=== PATIENT | male | born 1990 | race Caucasian/White ===

== ENCOUNTER 2019-05-09 18:07 | Emergency (ER) | payer BC ==
[~2019-05-09] VITALS: Ht 182.9 cm; Wt 65.3 kg
--- OUTSIDE RECORDS SUMMARY | ~2019-05-09 | XMS | Encounter Summary ---
Demographics + + + | Address | [address] | | | [place] [address] | + + + | Home Phone | | + + + | Preferred Language | Unknown | + + + | Marital Status | Single | + + + | Gnosticism Affiliation | Unknown | + + + | Race | Unknown | + + + | Ethnic Group | Unknown | + + + Author + + + | Author | [facility] | | | and [facility] | + + + | Organization | [facility] | | | and [facility] | + + + | Address | Unknown | + + + | Phone | Unavailable | + + + Support + + +---------+ + | Name | Relationship | Address | Phone | + + +---------+ + | Sherin Colón | ECON | Unknown | | + + +---------+ + Care Team Providers + +------+ + | Care Outpatient Therapist Name | Role | Phone | + +------+ + | No, Physician | PCP | Unavailable | + +------+ + Reason for Visit + + + | Reason | Comments | + + + | Work Related Injury | New Claim, lower back injury, RM 8 | + + + Encounter Details +--------+---------+ + + + | Date | Type | Department | Care Team | Description | +--------+---------+ + + + | 01/31/ | Office | [facility] | Gallito Parry, | Lumbar strain, | | 2019 | Visit | CARE [address] | MD [address] | initial encounter | | | | [place] | [place] | (Primary Dx) | | | | [phone] | [address] | | | | | [phone] | | | +--------+---------+ + + + Social History + +-------+ +--------+------+ | Tobacco Use | Types | Packs/Day | Years | Date | | | | | Used | | + +-------+ +--------+------+ | Never Smoker | | | | | + +-------+ +--------+------+ + +---+---+---+ | Smokeless Tobacco: | | | | | Never Used | | | | + +---+---+---+ + + + | Sex Assigned at | Date Recorded | | | | + + + | Not on file | | + + + + + + + | Job Start Date | Occupation | Industry | + + + + | Not on file | Not on file | Not on file | + + + + + + + + | Travel History | Travel Start | Travel End | + + + + + + | No recent travel history available. | + + documented as of this encounter Last Filed Vital Signs + + + + + | Vital Sign | Reading | Time Taken | Comments | + + + + + | Blood Pressure | 112/72 | 01/31/2019 1:41 PM | | | | | PDT | | + + + + + | Pulse | 73 | 01/31/2019 1:41 PM | | | | | PDT | | + + + + + | Temperature | 37.1 C (98.8 F) | 01/31/2019 1:41 PM | | | | | PDT | | + + + + + | Respiratory Rate | 18 | 01/31/2019 1:41 PM | | | | | PDT | | + + + + + | Oxygen Saturation | 97% | 01/31/2019 1:41 PM | | | | | PDT | | + + + + + | Inhaled Oxygen | - | - | | | Concentration | | | | + + + + + | Weight | 71 kg (156 lb 8.4 | 01/31/2019 1:41 PM | | | | oz) | PDT | | + + + + + | Height | 182.9 cm (6') | 01/31/2019 1:41 PM | | | | | PDT | | + + + + + | Body Mass Index | 21.23 | 01/31/2019 1:41 PM | | | | | PDT | | + + + + + documented in this encounter Patient Instructions Patient Instructions Gallito Parry MD - 01/31/2019 1:30 PM PDT You may take tylenol 500 mg 2 tablets with ibuprofen 200 mg 2 tablets four times daily as n eeded for the pain. Understanding Lumbosacral Strain Lumbosacral strain is a medical term for an injury that causes low back pain. The lumbosacr al area (low back) is between the bottom of the ribcage and the top of the buttocks. A strai n is tearing of muscles and tendons. These tears can be very small but still cause pain. How a lumbosacral strain happens Muscles and tendons connected to the spine can be strained in a number of ways: Sitting or standing in the same position for long periods of time. This can harm the low back over time. Poor posture can make low back pain more likely. Moving the muscles and tendons past their usual range of motion. This can cause a sudden injury. This can happen when you twist, bend over, or lift something heavy. Not using corre ct technique for sports or tasks like lifting can make back injury more likely. Accidents or falls Lumbosacral strain can be caused by other problems, but these are less common. Symptoms of lumbosacral strain Symptoms may include: Pain in the back, often on one side Pain that gets worse with movement and gets better with rest Inability to move as freely as usual Swelling, slight redness, and skin warmth in the painful area Treatment for lumbosacral strain Low back pain often goes away by itself within several weeks. But it often comes back. Mikki tment focuses on reducing pain and avoiding further injury. Bed rest is usually not recommen ded for low back pain. Treatments may include: Avoiding or changing the action that caused the problem. This helps prevent injuring the tissues again. Prescription or [id number]-ivvefje pain medicines. These help reduce inflammation, swellin g, and pain. Cold or heat packs. These help reduce pain and swelling. Stretching and other exercises. These improve flexibility and strength. Physical therapy. This usually includes exercises and other treatments. Injections of medicine. This may relieve symptoms. If these treatments do not relieve symptoms, your healthcare provider may order imaging haley ts to learn more about the problem. Sometimes you may need surgery. Possible complications of lumbosacral strain If the cause of the pain is not addressed, symptoms may return or get worse. Follow your [facility] instructions on lifestyle changes and treating your back. When to call your healthcare provider Call your healthcare provider right away if you have any of these: Fever of 100.4F (38C) or higher, or as directed Numbness, tingling, or weakness Problems with bowel or bladder control, or problems having sex Pain that does not go away, or gets worse New symptoms Date Last Reviewed: 07/09/201519993409-4005 [employer]. [address] [place] [address]. All [facility] ts reserved. This information is not intended as a substitute for professional medical care. Always follow your healthcare professional's instructions. documented in this encounter Progress Notes Gallito Parry MD - 01/31/2019 1:30 PM PDTFormatting of this note might be different fr om the original. Subjective: Patient ID: Clem Colón is a 29 y.o. male.who presents today for Work Related Inju ry (New Claim, lower back injury, RM 8) . HPI The patient is being seen at urgent care for work-related low back injury. He was at work this morning when he bent over to lift a tote which had a weight of approximately 75 to 100 pounds. He had acute onset of pain in the low back towards the right side. He denies any p ain numbness or weakness into the lower extremities. He has pain with twisting or bending. He has had no difficulty with passing urine. He has not taken anything for the pain at thi s time. He had a similar incident 1 year ago at which she was pulling cable from ground and was diagnosed with a lumbar strain. He has had no history of disc herniations and has had no history of back surgeries. There is no problem list on file for this patient. No past surgical history on file. No current outpatient medications on file. No current facility-administered medications for this visit. He reports that he has never smoked. He has never used smokeless tobacco. Allergies No active allergies Intolerance No active intolerances/contraindications ROS Objective: BP 112/72 | Pulse 73 | Temp 37.1 C (98.8 F) (Temporal) | Resp 18 | Ht 1.829 m (6') | Wt 71 kg (156 lb 8.4 oz) | SpO2 97% | BMI 21.23 kg/m Physical Exam Patient is alert and appropriate. He is quite stiff in his movements. He is able to raise from the side chair and get to the exam table without difficulty. The back is straight wit h no abnormal curvatures. There is no tenderness over the central spine with palpation or p ercussion. He has moderate tenderness on palpation of the right sacroiliac area. Straight leg raise is positive at approximately 80 degrees on the right side. Motor strength is equa l and symmetrical lower extremities proximal as well as distal without deficits. Sensation is intact to soft touch in general dermatomal areas of the lower extremities without abnorma l sensation. Deep tendon reflexes are 2+ patella and 2+ at both Achilles. No x-rays are performed at this time. No results found for this or any previous visit (from the past 24 hour(s)). Assessment/Plan: Clem was seen today for work related injury. Diagnoses and all orders for this visit: Lumbar strain, initial encounter Patient has an acute lumbar strain and will be treated conservatively at this time. He is given work restriction of no bending stooping crawling or climbing ladders for the next 2 we eks. He is to take Tylenol and ibuprofen as needed for pain and can use a heating pad or ic e whichever helps back to relax and relieve his pain better. If he is having increasing lori n, pain numbness or tingling radiating to the lower extremities, or any difficulty with pass ing stool or bladder he needs to be rechecked. Otherwise he will be rechecked by occupation al medicine in 2 weeks prior to returning to full duty. Activity prescription form medical restrictions form and report of accident forms are compl eted. Return in about 2 weeks (around 02/14/2019), or if symptoms worsen or fail to improve.Elect ronically signed by Gallito Parry MD at 01/31/2019 2:38 PM PDTdocumented in this encount er Plan of Treatment Not on filedocumented as of this encounter Visit Diagnoses + + | Diagnosis | + + | Lumbar strain, initial encounter - Primary | + + documented in this encounter"
--- OUTSIDE RECORDS SUMMARY | ~2019-05-09 | XMS | Encounter Summary ---
Demographics + + + | Address | [address] | | | [place] [address] | + + + | Home Phone | | + + + | Preferred Language | Unknown | + + + | Marital Status | Single | + + + | Presybeterian Affiliation | Unknown | + + + | Race | Unknown | + + + | Ethnic Group | Unknown | + + + Author + + + | Author | [facility] | | | and [facility] | + + + | Organization | [facility] | | | and [facility] [...] Team Providers + +------+ + | Care Minilab Operator Name | Role | Phone | + +------+ + | No, Physician | PCP | Unavailable | + +------+ + Reason for Visit + + + | Reason | Comments | + + + | Follow-up | Exam 2 - Follow up Lumbar strain. Pain has resolved - requesting | | | release to return to work. | + + + Encounter Details +--------+---------+ + + + | Date | Type | Department | Care Team | Description | +--------+---------+ + + + | 02/11/ | Office | [facility] | David Lainez DO | Back strain, | | 2019 | Visit | CARE [address] | [address] | subsequent encounter | | | | [place] | [place] | (Primary Dx) | | | | [phone] | [address] | | | | | [phone] | | | +--------+---------+ + + + [...] + + + | Blood Pressure | 118/68 | 02/11/2019 4:47 PM | | | | | PDT | | + + + + + | Pulse | 66 | 02/11/2019 4:47 PM | | | | | PDT | | + + + + + | Temperature | 36.9 C (98.5 F) | 02/11/2019 4:47 PM | | | | | PDT | | + + + + + | Respiratory Rate | 16 | 02/11/2019 4:47 PM | | | | | PDT | | + + + + + | Oxygen Saturation | 99% | 02/11/2019 4:47 PM | | | | | PDT | | + + + + + | Inhaled Oxygen | - | - | | | Concentration | | | | + + + + + | Weight | 70.4 kg (155 lb 3.3 | 02/11/2019 4:47 PM | | | | oz) | PDT | | + + + + + | Height | - | - | | + + + + + | Body Mass Index | 21.05 | 01/31/2019 1:41 PM | | | | | PDT | | + + + + + documented in this encounter Patient Instructions Patient Instructions David Lainez, - 02/11/2019 4:30 PM PDT Back Sprain or Strain Injury to the muscles (strain) or ligaments (sprain) around the spine canbe troubling. In jury may occur after a sudden forceful twisting or bending force such as in a car accident, after a simple awkward movement, or after lifting something heavy with poor body positioning . Inany case, muscle spasm is often present and adds to the pain. Thankfully, most people feel better in 1 to 2 weeks, and most of the rest in 1 to 2 months. Most people can remain active. Unless you had a forceful or traumatic physical injury such asa car accident or fall, X-rays may not be ordered for the first evaluation of a back spr ain or strain. If pain continues and does not respond to medical treatment, your healthcare provider may then order X-rays and other tests. Home care The following guidelines will help you care for your injury at home: When in bed, try to find a comfortable position. A firm mattress is best. Try lying flat on your back with pillows under your knees. You can also try lying on your side with your k nees bent up toward your chest and a pillow between your knees. Don't sit for long periods. Try not to take long car rides or take other trips that have you sitting for a long time. This puts more stress on the lower back than standing or walki ng. During the first 24 to 72 hours after an injury or flare-up, apply an ice pack to the pa inful area for 20 minutes. Then remove it for 20 minutes. Do this for60 to 90 minutes, or several times a day. This will reduce swelling and pain. Be sure to wrap the ice pack in a t hin towel or plastic to protect your skin. You can start with ice, then switch toheat. Heat from a hot shower, hot bath, or heati ng pad reduces pain and works well for muscle spasms. Put heat on the painful area for 20 mi nutes, then remove for 20 minutes.Do this for 60to 90 minutes, or several times a day. D o not use a heating pad while sleeping. It can burn the skin. You can alternate theice and heat. Talk with your healthcare provider to find out the best treatment or therapy for your back pain. Therapeutic massage will help relax the back muscles without stretching them. Be aware of safe lifting methods. Do not lift anything over 15 pounds until all of the p ain is gone. Medicines Talk to your healthcare provider before using medicines, especially if you have other healt h problems or are taking other medicines. You may use acetaminophen or ibuprofen to control pain, unless another pain medicine was prescribed. If you have chronic conditions like diabetes, liver or kidney disease, stomach ulcers, or gastrointestinal bleeding, or are taking blood-thinner medicines, talk with your doctor before taking any medicines. Be careful if you are given prescription medicines, narcotics, or medicine for muscle sp asm. They can cause drowsiness, and affect your coordination, reflexes, and judgment. Do not drive or operate heavy machinery when taking these types of medicines. Only take pain medic ine as prescribed by your healthcare provider. Follow-up care Follow up with your healthcare provider, or as advised. You may need physical therapy or mo re testsif your symptoms get worse. If you had X-rays your healthcare provider may be checking for any broken bones, breaks, or fractures. Bruises and sprains can sometimes hurt as much as a fracture. These injuries can take time to heal completely. If your symptoms don t improve or they get worse, talk with your healthcare provider. You may need a repeat X-ray or other tests. Call 911 Call 911 if any of the following occur: Trouble breathing Confused Very drowsy or trouble awakening Fainting or loss of consciousness Rapid or very slow heart rate Loss of bowel or bladder control When to seek medical advice Call your healthcare provider right away if any of the following occur: Pain gets worse or spreads to your arms or legs Weakness or numbness in one or both arms or legs Numbness in the groin or genital area Date Last Reviewed: 09/30/201519998754-6072 [employer]. [address] [place] [address]. All [facility] ts reserved. This information is not intended as a substitute for professional medical care. Always follow your healthcare professional's instructions. documented in this encounter Progress Notes David Lainez DO - 02/11/2019 4:30 PM PDTFormatting of this note might be different from th moe original. [employer] Visit Identification: Clem Colón is a 29 y.o. male. Chief Complaint Patient presents with Follow-up Exam 2 - Follow up Lumbar strain. Pain has resolved - requesting release to return to [facility]. Subjective: PCP: No Physician on file Claim Number: [place] Date of Injury: 01/31/19 Patient here to follow-up on his work status for his back pain. Patient sustained low back pain on 31 January when he was lifting a tote. Prior to that he had similar injury in October. After the third injury he was off for 2 weeks and has improved significantly. He is here requesting a release to work without any restrictions. @PROBLOVERVIEW@ No past medical history on file. No past surgical history on file. Social History Tobacco Use Smoking status: Never Smoker Smokeless tobacco: Never Used Substance Use Topics Alcohol use: Not on file No current outpatient medications on file prior to visit. No current facility-administered medications on file prior to visit. No Known Allergies Review of Systems: As per subjective section. Objective: VS: BP 118/68 | Pulse 66 | Temp 36.9 C (98.5 F) (Temporal) | Resp 16 | Wt 70.4 kg ( 155 lb 3.3 oz) | SpO2 99% | BMI 21.05 kg/m Back examination: Normal examination with normal range of motion. No tenderness to palpati on. Straight leg testing negative. No neurologic issues. Diagnostic Data: None Assessment: 1. Back strain, subsequent encounter Resolved. Plan: Released without restrictions. Discuss about back exercises to strengthen. Employment Issues: Full duty Restrictions to Recovery: None F/u prn. David Lainez DO, FAAFP documented in this encoun ter Plan of Treatment Not on filedocumented as of this encounter Visit Diagnoses + + | Diagnosis | + + | Back strain, subsequent encounter - Primary | + + documented in this encounter"
--- OUTSIDE RECORDS SUMMARY | ~2019-05-09 | XMS | Clinical Summary ---
Demographics + + + | Address | [address] | | | [place] [address] | + + + | Home Phone | | + + + | Preferred Language | Unknown | + + + | Marital Status | Single | + + + | Congregational Affiliation | Unknown | + + + | Race | Unknown | + + + | Ethnic Group | Unknown | + + + Author + + + | Author | [facility] | | | and [facility] | + + + | Organization | [facility] | | | and [facility] [...] Team Providers + +------+ + | Care Instrument Technologist Name | Role | Phone | + +------+ + | No, Physician | PCP | Unavailable | + +------+ + Allergies No Known Allergies Medications No known medications Active Problems No known active problems Encounters +--------+ + + + + | Date | Type | Specialty | Care Team | Description | +--------+ + + + + | 02/18/ | Telephone | Rehabilitation | Claudette Barry | Appointment | | 2019 | | | MD Christie | | +--------+ + + + + | 10/14/ | Office | Immediate Care | Lainez David Valladares, DO | Back strain, | | 2019 | Visit | | | subsequent encounter | | | | | | (Primary Dx) | +--------+ + + + + from Last 3 Months Social History + +-------+ +--------+------+ | Tobacco [...] recent travel history available. | + + Last Filed Vital Signs + + + [...] | | + + + + + Plan of Treatment + + + + + | Health Maintenance | Due Date | Last Done | Comments | + + + + + | Vaccine: | | 06/14/2005, 07/28/1990, | | | Dtap/Tdap/Td (6 - | 8 | 1989, Additional history | | | Tdap) | | exists | | + + + + + | Vaccine: Influenza | | | | | (#1) | 9 | | | + + + + + Results Not on filefrom Last 3 Months Insurance + +--------+ +--------+ +---------+--------+ | Payer | Benefi | Subscriber | Effect | Phone | Address | Type | | | t Plan | ID | rosalino | | | | | | / | | Dates | | | | | | Group | | | | | | + +--------+ +--------+ +---------+--------+ | [employer] | [place] | [id number] | | [phone] | | Indemn | | | [place] | | [phone]-Pr | 0 | | ity | | | ESIS | | esent | | | | | | WC | | | | | | + +--------+ +--------+ +---------+--------+ + +--------+ +--------+ + + | Guarantor Name | Accoun | Relation to | Date | Phone | Billing Address | | | t Type | Patient | of | | | | | | | | | | + +--------+ +--------+ + + | Clem Colón | 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 | [birth year] | [address] | | | s Comp | | 1989 | [phone] | [place], [place] | | | | | | [address] ([place]) | [phone] | + +--------+ +--------+ + + | Clem Colón | 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 | [birth year] | | [address] | | | s Comp | | 1989 | [phone] | [place], [place] | | | | | | [place] ([place]) | [phone] | + +--------+ +--------+ + + | Clem Colón | 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 | [birth year] | | [address] | | | s Comp | | 1989 | [phone] | [place], [place] | | | | | | [place] ([place]) | [address] | + +--------+ +--------+ + + | Clem Colón | 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 | [birth year] | | [address] | | | s Comp | | 1989 | [phone] | [place], [place] | | | | | | [place] ([place]) | [phone] | + +--------+ +--------+ + + | Clem Colón | 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
--- OUTSIDE RECORDS SUMMARY | ~2019-05-09 | XMS | Encounter Summary ---
Demographics + + + | Address | [address] | | | [place] [address] | + + + | Home Phone | | + + + | Preferred Language | Unknown | + + + | Marital Status | Single | + + + | Muslim Affiliation | Unknown | + + + | Race | Unknown | + + + | Ethnic Group | Unknown | + + + Author + + + | Author | [facility] | | | and [facility] | + + + | Organization | [facility] | | | and [facility] [...] Team Providers + +------+ + | Care Mechanical Spreader Operator Name | Role | Phone | + +------+ + | No, Physician | PCP | Unavailable | + +------+ + Reason for Visit + + + | Reason | Comments | + + + | Appointment | | + + + Encounter Details +--------+ + + + + | Date | Type | Department | Care Team | Description | +--------+ + + + + | 02/18/ | Telephone | [facility] | Claudette Barry | Appointment | | 2019 | | OCCUPATIONAL HEALTH | MD [address] | | | | [address] [place] | | | | [address] [place] | [place] [address] | | | | | [place] | [phone] | | | | | [address] | | | | | | [phone] | | | +--------+ + + + + Social History + +-------+ [...] + + documented as of this encounter Plan of Treatment Not on filedocumented as of this encounter Visit Diagnoses Not on filedocumented in this encounter"
--- OUTSIDE RECORDS SUMMARY | ~2019-05-09 | XMS | Encounter Summary ---
Demographics + + + | Address | [address] | | | [place] [address] | + + + | Home Phone | | + + + | Preferred Language | Unknown | + + + | Marital Status | Single | + + + | Yazidi Affiliation | Unknown | + + + | Race | Unknown | + + + | Ethnic Group | Unknown | + + + Author + + + | Author | [facility] [place] | | | and [facility] | + + + | Organization | [facility] [place] | | | and [facility] [...] Team Providers + +------+ + | Care Travel Rn Or Name | Role | Phone | + +------+ + | No, Physician | PCP | Unavailable | + +------+ + Reason for Visit + + + | Reason | Comments | + + + | Follow-up | exam 5/ lumbar sprain DOI: 11/07/17/ feeling better | + + + Encounter Details +--------+---------+ + + + | Date | Type | Department | Care Team | Description | +--------+---------+ + + + | 11/20/ | Office | [facility] | Clay Tidwell | Lumbar sprain, | | 2018 | Visit | CARE [address] | Braden Klein MD | initial encounter | | | | [place] | [address] | (Primary Dx) | | | | [address] | [place] | | | | | [phone] | [id number] | | | | | | | | +--------+---------+ + + + [...] + + + | Blood Pressure | 108/77 | 11/20/2017 1:00 PM | | | | | PDT | | + + + + + | Pulse | 78 | 11/20/2017 1:00 PM | | | | | PDT | | + + + + + | Temperature | 37.4 C (99.3 F) | 11/20/2017 1:00 PM | | | | | PDT | | + + + + + | Respiratory Rate | 12 | 11/20/2017 1:00 PM | | | | | PDT | | + + + + + | Oxygen Saturation | 99% | 11/20/2017 1:00 PM | | | | | PDT | | + + + + + | Inhaled Oxygen | - | - | | | Concentration | | | | + + + + + | Weight | 68.9 kg (152 lb) | 11/20/2017 1:00 PM | | | | | PDT | | + + + + + | Height | 182.9 cm (6') | 11/20/2017 1:00 PM | | | | | PDT | | + + + + + | Body Mass Index | 20.61 | 11/20/2017 1:00 PM | | | | | PDT | | + + + + + documented in this encounter Patient Instructions Patient Instructions Clay Tidwell Jr., MD - 11/20/2017 1:00 PM PDTRegular work without restriction recheck in one week for claim closure if doing well documented in this encounter Progress Notes Clay Tidwell Jr., MD - 11/20/2017 1:00 PM PDTJarrjere Colón Employer: [employer] Date of [place]: 11/07/2017 [id number] Insurance: [employer] Chief complaint: lumbar strain History of present illness: patient injured his back on 11/07 while pulling some cable. He comes in now wanting to return to full duty as he has improved with minimal discomfort only with the extremes of portion in either direction. He said no radicular pain. He said no n umbness tingling weakness or gallbladder symptoms. Physical exam BP 108/77 | Pulse 78 | Temp 37.4 C (99.3 F) (Temporal) | Resp 12 | Ht 1.829 m (6') | Wt 68.9 kg (152 lb) | SpO2 99% | BMI 20.61 kg/m back: good range of motion without discomfort, no sacroiliac joint tenderness, straight leg raising is negative, deep tendon reflexes are symmetric, motor is intact Imaging to date: none Physical therapy: none Consults: none Surgery: none Work status: will return to regular duty without restriction and have him return in one we ek for claim closure if tolerating without pain MMI: not yet achieved Diagnosis: lumbar strain-improved Plan: full duty without restriction, recheck in one week for possible claim closure if no setback document ed in this encounter Plan of Treatment Not on filedocumented as of this encounter Visit Diagnoses + + | Diagnosis | + + | Lumbar sprain, initial encounter - Primary | + + documented in this encounter"
--- OUTSIDE RECORDS SUMMARY | ~2019-05-09 | XMS | Encounter Summary ---
Demographics + + + | Address | [address] | | | [place] [address] | + + + | Home Phone | | + + + | Preferred Language | Unknown | + + + | Marital Status | Single | + + + | Uatsdin Affiliation | Unknown | + + + | Race | Unknown | + + + | Ethnic Group | Unknown | + + + Author + + + | Author | [facility] [place] | | | and [facility] | + + + | Organization | [facility] [place] | | | and [facility] [...] Team Providers + +------+ + | Care Auto Brake Technician Name | Role | Phone | + [...] + + | 01/31/ | Office | [facility] | Gallito Parry, | Lumbar strain, | | 2019 | Visit | CARE [address] | MD [address] | initial encounter | | | | [place] | [place] | (Primary Dx) | | | | [address] | [address] | | | | | [phone] | | | +--------+---------+ + + + [...] prevent injuring the tissues again. Prescription or [id number]-[id number] pain medicines. These help reduce inflammation, swellin [...] return or get worse. Follow your [facility] s instructions on lifestyle changes and [...] gets worse New symptoms Date Last Reviewed: 07/09/201519998262-5150 [employer]. [address] [place] [address]. All [facility] ts reserved. This information is not [...]
--- OUTSIDE RECORDS SUMMARY | ~2019-05-09 | XMS | Encounter Summary ---
Demographics + + + | Address | [address] | | | [place] [address] | + + + | Home Phone | | + + + | Preferred Language | Unknown | + + + | Marital Status | Single | + + + | Pentecostalism Affiliation | Unknown | + + + | Race | Unknown | + + + | Ethnic Group | Unknown | + + + Author + + + | Author | [facility] [place] | | | and [facility] | + + + | Organization | [facility] [place] | | | and [facility] [...] Team Providers + +------+ + | Care Cosmetic Assembler Name | Role | Phone | + [...] + + | 02/11/ | Office | [facility] | David Lainez DO | Back strain, | | 2019 | Visit | CARE [address] | [address] | subsequent encounter | | | | [place] | [place] | (Primary Dx) | | | | [address] | [address] | | | | | [phone] | | | +--------+---------+ + + + [...] groin or genital area Date Last Reviewed: 09/30/201519995412-0487 [employer] [place] [address]. All [facility] ts reserved. This information is not intended [...] resolved - requesting release to return to [facility]. Subjective: PCP: No Physician on file Claim Number: [place] Date of Injury: 01/31/19 Patient here to [...]
--- OUTSIDE RECORDS SUMMARY | ~2019-05-09 | XMS | Encounter Summary ---
Demographics + + + | Address | [address] | | | [place] [address] | + + + | Home Phone | | + + + | Preferred Language | Unknown | + + + | Marital Status | Single | + + + | Scientology Affiliation | Unknown | + + + | Race | Unknown | + + + | Ethnic Group | Unknown | + + + Author + + + | Author | [facility] [place] | | | and [facility] | + + + | Organization | [facility] [place] | | | and [facility] [...] Team Providers + +------+ + | Care Mortgage Closing Clerk Name | Role | Phone | + [...] [address] | [place] [address] | | | | | [place] | [phone] | | | | | [address] | | | | | | [phone] | | | +--------+ + + + [...]
--- OUTSIDE RECORDS SUMMARY | ~2019-05-09 | XMS | Clinical Summary ---
Demographics + + + | Address | [address] | | | [place] [address] | + + + | Home Phone | | + + + | Preferred Language | Unknown | + + + | Marital Status | Single | + + + | Presybeterian Affiliation | Unknown | + + + | Race | Unknown | + + + | Ethnic Group | Unknown | + + + Author + + + | Author | [facility] [place] | | | and [facility] | + + + | Organization | [facility] [place] | | | and [facility] [...] Team Providers + +------+ + | Care Player Services Representative Name | Role | Phone | + [...] | [employer] | [place] | [phone] | | [phone] | | Indemn | [...] | | | | | | 8 ([place]) | [phone] | + +--------+ +--------+ + + | Clem Colón | 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 | [birth year] | [address] | | | s Comp | | 1989 | [phone] | [place], [place] | | | | | | [place] ([place]) | [phone] | + +--------+ +--------+ + + | Clem Colón | 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 | [birth year] | | [address] | | | s Comp | | 1989 | [phone] | [place], [place] | | | | | | 8 ([place]) | [phone] | + +--------+ +--------+ + + | Clem Colón | 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 | [birth year] | | [address] | | | s Comp | | 1989 | [phone] | [place], [place] | | | | | | 8 ([place]) | [phone] | + +--------+ +--------+ + + | Clem Colón | 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 | [birth year] | | [address] | | | s Comp | | 1989 | [phone] | [place], [place] | | | | | | 8 ([place]) | [phone] | + +--------+ +--------+ + + | Clem Colón | Person | Self | [birth year] | | [address] | | | al/Fam | | 1989 | [phone] | [place], [place] | | | chele | | | 8 ([place]) | [phone] | + +--------+ +--------+ + + Advance Directives + + + + + | Type | Date Recorded | Patient | Explanation | | | | Desk Manager | | + + + + + | Power of | | | | | Paper Machine Back Tender | | | | + + + + + | Advance | | | | | Directive | | | | + + + + +"
--- OUTSIDE RECORDS SUMMARY | ~2019-05-09 | XMS | Encounter Summary ---
Demographics + + + | Address | [address] | | | [place] [address] | + + + | Home Phone | | + + + | Preferred Language | Unknown | + + + | Marital Status | Single | + + + | Mu-Ism Affiliation | Unknown | + + + | Race | Unknown | + + + | Ethnic Group | Unknown | + + + Author + + + | Author | [facility] [place] | | | and [facility] | + + + | Organization | [facility] [place] | | | and [facility] | [...] Team Providers + +------+ + | Care Inside Account Representative Name | Role | Phone | + +------+ + | No, Physician | PCP | Unavailable | + +------+ + Reason for Visit + + + | Reason | Comments | + + + | Back Pain | Exam 3/ low back pain 11/07/17 | + + + Encounter Details +--------+---------+ + + + | Date | Type | Department | Care Team | Description | +--------+---------+ + + + | 11/07/ | Office | [facility] | Gomez Horowitz, | Lumbar sprain, | | 2018 | Visit | CARE [address] | MD [address] | initial encounter | | | | [place] | [place] | (Primary Dx); Work | | | | [address] | [address] | related injury | | | | [phone] | | | +--------+---------+ + + + [...] + + + | Blood Pressure | 126/76 | 11/07/2017 5:47 PM | | | | | PDT | | + + + + + | Pulse | 79 | 11/07/2017 5:47 PM | | | | | PDT | | + + + + + | Temperature | 36.7 C (98.1 F) | 11/07/2017 5:47 PM | | | | | PDT | | + + + + + | Respiratory Rate | 16 | 11/07/2017 5:47 PM | | | | | PDT | | + + + + + | Oxygen Saturation | 98% | 11/07/2017 5:47 PM | | | | | PDT | | + + + + + | Inhaled Oxygen | - | - | | | Concentration | | | | + + + + + | Weight | 69.1 kg (152 lb 5.4 | 11/07/2017 5:47 PM | | | | oz) | PDT | | + + + + + | Height | 182.9 cm (6') | 11/07/2017 5:47 PM | | | | | PDT | | + + + + + | Body Mass Index | 20.66 | 11/07/2017 5:47 PM | | | | | PDT | | + + + + + documented in this encounter Patient Instructions Patient Instructions Gomez Horowitz MD - 11/07/2017 5:15 PM PDTUse intermittent ice for the next couple days followed with heat after that, along with light activity, with slow st retching and range of motion for your back as needed. Take Aleve 2 tablets twice a day or i buprofen 600 mg every 6 hours as needed for pain. Remain on light duty with no lifting over 10 pounds, limit bending to 10%, and no climbing, until follow up here or with occupational medicine in 2 weeks. Return sooner as needed. documented in this encounter Progress Notes Gomez Horoiwtz MD - 11/07/2017 5:15 PM PDTFormatting of this note might be different fr om the original. Subjective: Chief Complaint: Back Pain (Exam 3/ low back pain WC 11/07/17) Clem is a 27 y.o. male who comes in complaining of a work related injury from an acute on set of low back pain when he was pulling a cable out of the ground and the cable got stuck, causing him to strain his back. That occurred at about 10:30 this morning. He states pain is worse with use. No radiation of the pain and no weakness or paresthesias. He has never had this previously. He denies other associated symptoms. No other complaints. Patient's medications, allergies, past medical, surgical, social and family histories were reviewed and updated as appropriate. Objective: BP 126/76 | Pulse 79 | Temp 36.7 C (98.1 F) (Temporal) | Resp 16 | Ht 1.829 m (6') | Wt 69.1 kg (152 lb 5.4 oz) | SpO2 98% | BMI 20.66 kg/m General Appearance: Alert, cooperative, no distress, appears stated age Back has moderate tenderness to flexion beyond 45 though no significant tenderness to pal pation. No palpable spasm. No spinal tenderness to palpation. Both lower extremities have normal strength and sensation throughout, with straight leg raise causing an exacerbation o f his low back pain though no radiation of the pain down the lower extremities. Reflexes ar e 1+ and symmetric to knee jerk and 2+ and symmetric to ankle jerk. Assessment and Plans: Work-related injury with lumbar sprain. Will treat with intermittent ice over the next cou ple days followed with heat after that. He is to have light activity with gentle range of m otion exercises. I encouraged use of ibuprofen or Aleve, however he states he prefers to av oid medications. He will remain on light duty at work with no lifting over 10 pounds, bendi ng limited to 10%, and no climbing, all of which will remain in effect until follow-up eithe r here or with occupational medicine in 2 weeks. Return here sooner as needed. documented in this e ncounter Plan of Treatment Not on filedocumented as of this encounter Visit Diagnoses + + | Diagnosis | + + | Lumbar sprain, initial encounter - Primary | + + | Work related injury Injury, other and unspecified, unspecified site | + + documented in this encounter"
--- OUTSIDE RECORDS SUMMARY | ~2019-05-09 | XMS | Encounter Summary ---
Demographics + + + | Address | [address] | | | [place] [address] | + + + | Home Phone | | + + + | Preferred Language | Unknown | + + + | Marital Status | Single | + + + | Confucianist Affiliation | Unknown | + + + | Race | Unknown | + + + | Ethnic Group | Unknown | + + + Author + + + | Author | [facility] [place] | | | and [facility] | + + + | Organization | [facility] [place] | | | and [facility] [...] Team Providers + +------+ + | Care Supervisor Money Room Name | Role | Phone | + [...] + + | 11/20/ | Office | [facility] | Clay Tidwell | Lumbar sprain, | | 2018 | Visit | CARE [address] | Braden Klein MD | initial encounter | | | | [place] | [address] | (Primary Dx) | | | | [address] | [place] | | | | | [phone] | [phone] | | | | | | | [...] Date of [place]: 11/07/2017 [id number] Insurance: [employer] Chief complaint: lumbar strain History of present [...]
--- OUTSIDE RECORDS SUMMARY | ~2019-05-09 | XMS | Encounter Summary ---
Demographics + + + | Address | [address] | | | [place] [address] | + + + | Home Phone | | + + + | Preferred Language | Unknown | + + + | Marital Status | Single | + + + | Amish Affiliation | Unknown | + + + | Race | Unknown | + + + | Ethnic Group | Unknown | + + + Author + + + | Author | [facility] [place] | | | and [facility] | + + + | Organization | [facility] [place] | | | and [facility] | [...] Team Providers + +------+ + | Care Ct Technician Name | Role | Phone | [...] (Primary Dx); Work | | | | [address] | [address] | related injury | | | | [phone] | | | +--------+---------+ + + + [...] documented in this encounter Progress Notes Gomez Horowitz MD - 11/07/2017 5:15 PM PDTFormatting of [...]
[2019-05-09] MEDS ORDERED: ONDANSETRON ODT4 MG SL (19:25)
== END 2019-05-09 19:57 | disposition home or self-care (01) ==
LOC: ED 18:07
DX: E86.0 Dehydration (principal); R11.10 Vomiting, unspecified; R51 Headache
CPT/HCPCS: 99284